=== PATIENT | female | born 1945 | race Caucasian/White ===

== ENCOUNTER 2023-04-12 08:34 | Inpatient (IN) ==
[~2023-04-12 08:34] MED LIST: Buffered Lidocaine 1% SYRIN 1 ml INTRADERM ONE; Clindamycin 900 MG/50 **NS BAG 900 MG/50 ML BAG ONE; Heparin 5000 UNITS/ML 1 mL VIAL ONE; Lactated Ringers 1000 ml BAG 1,000 ML IV SCH; Lidocaine 2% PF 5 ML VIAL ONE; Propofol 10 MG/ML 20 ML BTL ONE; Rocuronium 50 mg VIAL 10 mg/ml 5 ml VIAL (50 mg) ONE; fentaNYL 250 mcg/5 ml 50 MCG/ML 5 ml VIAL (250 MCG) ONE
[2023-04-12 09:13] LABS: Rapid COVID-19 Molecular Undetected (Undetected)
[2023-04-12] MEDS ORDERED: Bupivacaine 0.5% 50 ML MDV VIAL ONE (10:00)
[2023-04-12] MEDS ORDERED: Bupivacaine 0.25% SDV 30 ML ONE (10:00)
[2023-04-12] MEDS ORDERED: fentaNYL 100 mcg/2 ml 50 MCG/ML VIAL ONE (10:05)
[2023-04-12] MEDS ORDERED: Midazolam 2 mg/2 ml VIAL 1 mg/ml 2 ml VIAL (2 mg) ONE ×2 (10:06→10:09)
[2023-04-12] MEDS ORDERED: Dexmedetomidine 200 mcg/2 ml 2 ml VIAL (200 mcg) ONE (10:08)
[2023-04-12] MEDS ORDERED: Lidocaine 1% w EPI 1:100,000 MDV 20 ML VIAL ONE (10:08)
[2023-04-12] MEDS ORDERED: Bupivacaine 0.25% EPI 200,000 30 ML SDV ONE (10:31)
[2023-04-12] MEDS ORDERED: Lidocaine 1% VIAL 10 MG/ML VIAL 30 ML ONE (10:31)
[2023-04-12] MEDS ORDERED: Gentamicin ADULT 275 MG in NS 0.9% 100 ml BAG 100 ML IVPB ONE (11:00)
[2023-04-12] MEDS ORDERED: Ondansetron 4 mg VIAL 2 MG/ML 2 ml VIAL ONE ×2 (11:13→16:13)
[2023-04-12] MEDS ORDERED: Sterile Water for Inj 10 ML ONE (11:17)
[2023-04-12] MEDS ORDERED: HYDROmorphone 1 MG/1 ML SYRINGE IV PRN (11:29)
[2023-04-12] MEDS ORDERED: fentaNYL 100 mcg/2 ml 50 MCG/ML VIAL IV PRN (11:29)
[2023-04-12] MEDS ORDERED: Naloxone 0.4 mg VIAL 0.4 mg/ml 1 ml VIAL IV PRN (11:29)
[2023-04-12] MEDS ORDERED: Ondansetron 4 mg VIAL 2 MG/ML 2 ml VIAL IV PRN ×2 (11:29→15:09)
[2023-04-12] MEDS ORDERED: Dexamethasone IV 4 MG/ML VIAL 1 ml VIAL ONE (11:49)
[2023-04-12] MEDS ORDERED: HYDROmorphone 1 MG/1 ML SYRINGE ONE (15:13)
[2023-04-12] MEDS ORDERED: HYDROmorphone 0.5 MG/0.5 ML SYRINGE IV SLOW PU PRN (15:38)
[2023-04-12] MEDS ORDERED: Dextrose 50% Syringe 50 ml 25 GM/50 ML SYRINGE IV PUSH PRN (15:51)
[2023-04-12] MEDS: metroNIDAZOLE IV 500 MG/100ML 500 MG/100 ML BAG IVPB SCH (18:07)
[2023-04-13] MEDS: Acetaminophen IV 1 GM/100ML 1,000 MG/100 ML BAG IV PRN ×2 (01:37→08:51)
[2023-04-13] MEDS: metroNIDAZOLE IV 500 MG/100ML 500 MG/100 ML BAG IVPB SCH ×3 (02:43→17:38)
[2023-04-13 06:58] LABS: ABS Basophils 0.1 10^3/uL (0.0-0.1); ABS Lymphocytes 1.4 10^3/uL (1.0-4.8); ABS Monocytes 0.7 10^3/uL (0.0-0.9); ABS Neutrophils 16.8 10^3/uL (1.5-7.6); ABS Nucleated RBC 0.01 10^3/ul; Hemoglobin 7.2 g/dL (11.5-14.3); Lymphocyte % 7.4 %; Mean Corpuscular Hemoglobin 22.3 pg (27-33); Mean Corpuscular Hgb Conc 31.1 g/dL (31-36); Mean Corpuscular Volume 71.6 fL (80-97); Mean Platelet Volume 8.9 fL (7.5-11.2); Nucleated Red Blood Cells % 0.1 /100 WBC (0.0-0.4); Platelet Count 379 10^3/uL (150-450); Red Blood Count 3.21 10^6/uL (3.63-4.92); Red Cell Distribution Width 19.1 % (12-17); White Blood Count 19.1 10^3/uL (3.8-11.8)
[2023-04-13 07:17] LABS: Calcium 8.2 mg/dL (8.6-10.3); Creatinine, Serum 1.61 mg/dL (0.51-0.95); Potassium 3.8 mmol/L (3.5-5.0); eGFR CKD-EPI 33.2 (>60)
[2023-04-13] MEDS: Enoxaparin 30 MG/0.3 ML SYR SUBCUT SCH (10:20)
[2023-04-13] MEDS ORDERED: Pantoprazole VIAL 40 MG VIAL IV SCH (22:00)
[2023-04-13] MEDS: Calcium Carb (TUMS) 500 mg CHEW TAB PO SCH (22:32)
[2023-04-14] MEDS: metroNIDAZOLE IV 500 MG/100ML 500 MG/100 ML BAG IVPB SCH ×2 (01:58→10:25)
[2023-04-14 07:54] LABS: Calcium 8.3 mg/dL (8.6-10.3); Creatinine, Serum 1.51 mg/dL (0.51-0.95); Potassium 3.5 mmol/L (3.5-5.0); eGFR CKD-EPI 35.8 (>60)
[2023-04-14 08:08] LABS: ABS Basophils 0.1 10^3/uL (0.0-0.1); ABS Lymphocytes 1.5 10^3/uL (1.0-4.8); ABS Neutrophils 16.8 10^3/uL (1.5-7.6); Hematocrit 22.7 % (35-45); Lymphocyte % 7.6 %; Mean Corpuscular Hemoglobin 22.5 pg (27-33); Mean Corpuscular Volume 72.5 fL (80-97); Mean Platelet Volume 8.7 fL (7.5-11.2); Platelet Count 312 10^3/uL (150-450); Red Blood Count 3.13 10^6/uL (3.63-4.92); Red Cell Distribution Width 19.6 % (12-17); White Blood Count 19.5 10^3/uL (3.8-11.8)
[2023-04-14] MEDS: Calcium Carb (TUMS) 500 mg CHEW TAB PO SCH ×3 (08:53→20:51)
[2023-04-14] MEDS: Acetaminophen IV 1 GM/100ML 1,000 MG/100 ML BAG IV PRN ×2 (10:03→16:55)
[2023-04-14] MEDS: Enoxaparin 30 MG/0.3 ML SYR SUBCUT SCH (10:06)
[2023-04-15] MEDS: Acetaminophen IV 1 GM/100ML 1,000 MG/100 ML BAG IV PRN ×2 (02:11→09:47)
[2023-04-15 06:21] LABS: Hematocrit 21.4 % (35-45); Hemoglobin 6.8 g/dL (11.5-14.3); Mean Corpuscular Hemoglobin 22.7 pg (27-33); Mean Corpuscular Hgb Conc 31.6 g/dL (31-36); Mean Corpuscular Volume 71.8 fL (80-97); Mean Platelet Volume 8.6 fL (7.5-11.2); Platelet Count 284 10^3/uL (150-450); Red Blood Count 2.98 10^6/uL (3.63-4.92); Red Cell Distribution Width 19.2 % (12-17); White Blood Count 13.9 10^3/uL (3.8-11.8)
[2023-04-15 06:28] LABS: Calcium 8.1 mg/dL (8.6-10.3); Creatinine, Serum 1.33 mg/dL (0.51-0.95); Potassium 3.5 mmol/L (3.5-5.0); eGFR CKD-EPI 41.7 (>60)
[2023-04-15] MEDS: Calcium Carb (TUMS) 500 mg CHEW TAB PO SCH (08:11)
[2023-04-15] MEDS: Enoxaparin 30 MG/0.3 ML SYR SUBCUT SCH (09:49)
[2023-04-15 10:26] VITALS: BP 101/54
== END 2023-04-15 14:10 | disposition home or self-care (01) | DRG 331 ==
LOC: AA 08:34 → SSU 15:09
PROVIDERS: ADMIT Surgery; ATTEND Surgery